=== PATIENT | female | born 1950 ===

== ENCOUNTER 2018-03-31 12:42 | Emergency (ER) | payer MEDICARE ==
[2018-03-31 12:56] VITALS: BMI 27.1
[2018-03-31 12:59] VITALS: BP 141/79; PULSE 75; RESP 18; TEMP 98; O2SAT 99
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
== END 2018-03-31 13:50 | disposition home or self-care (01) ==
LOC: C.ER 12:42
DX: S23.3XXA Sprain of ligaments of thoracic spine, initial encounter (principal); V79.50XA Passenger on bus injured in collision with unspecified motor vehicles in traffic accident, initial encounter